=== PATIENT | male | born 1950 ===

== ENCOUNTER 2019-06-09 11:36 | Inpatient (IN) ==
[2019-06-09 12:09] LABS: Basophils # 0.1 K/mcL (0.0-0.2); Basophils % 0.7 %; Eosinophils # 0.6 K/mcL (0.0-0.6); Eosinophils % 5.6 %; Hematocrit 52.7 % (37.5-50.1); Hemoglobin 16.9 g/dL (12.9-16.9); Immature Granulocytes % 0.4 % (0-4); Lymphocytes # 2.1 K/mcL (0.6-4.6); Lymphocytes % 18.8 %; Mean Corpuscular HGB Conc 32.1 g/dL (31.6-35.5); Mean Corpuscular Hemoglobin 30.1 pg (28.0-33.3); Mean Corpuscular Volume 93.8 fL (83.0-100.0); Mean Platelet Volume 10.5 fL (9.4-12.4); Monocytes # 0.8 K/mcL (0.0-1.3); Monocytes % 7.2 %; Neutrophils # 7.5 K/mcL (1.6-8.9); Platelet Count 185 K/mcL (140-400); Red Blood Count 5.62 M/mcL (4.19-5.50); Red Cell Distribution Width 13.9 % (11.5-14.5); Segmented Neutrophils % 67.3 %; White Blood Count 11.2 K/mcL (4.3-11.1)
[2019-06-09 12:17] LABS: INR 1.2; Prothrombin Time 13.2 Seconds (9.4-12.1)
[2019-06-09 12:19] LABS: Activated Partial Thrombo Time 31.8 Seconds (26.0-36.0)
[2019-06-09] MEDS ORDERED: Azithromycin 500 MG in 0.9 % Sodium Chloride 250 ML IVPB ONE (12:26)
[2019-06-09] MEDS ORDERED: cefTRIAXone 1,000 MG in Water for inj. (sterile) 10 ML IVP ONE (12:26)
[2019-06-09 12:28] LABS: VBG HCO3 38 mEq/L (21-27); VBG PCO2 76 mmHg (41-51); VBG PO2 93 mmHg (25-50)
[2019-06-09] MEDS ORDERED: methylPREDNISolone 125 MG/2 ML VIAL IVP ONE (12:32)
[2019-06-09 12:56] LABS: Alanine Aminotransferase 11 Units/L (7-52); Albumin 4.6 g/dL (3.5-5.7); Albumin/Globulin Ratio 1.7 (1.1-2.2); Alkaline Phosphatase 82 Units/L (34-104); Aspartate Amino Transferase 17 Units/L (13-39); Bilirubin,Direct 0.2 mg/dL (0.0-0.2); Bilirubin,Indirect 0.5 mg/dL (0.0-1.0); Bilirubin,Total 0.7 mg/dL (0.3-1.0); Blood Urea Nitrogen 14 mg/dL (8-23); Calcium 10.1 mg/dL (8.6-10.3); Carbon Dioxide 37 mEq/L (23-29); Chloride 94 mEq/L (98-107); Globulin 2.7 g/dL (2.4-3.5); Glucose 91 mg/dL (70-105); Osmolality,Calculated 284 (280-300); Potassium 4.6 mEq/L (3.5-5.1); Sodium 137 mEq/L (136-145); Total Protein 7.3 g/dL (6.4-8.9)
[2019-06-09] MEDS ORDERED: *HR* Heparin 5,000 UNIT/ML VIAL IVP ONE (13:00)
[2019-06-09] MEDS ORDERED: Heparin 25,000 UNIT/250 ML D5W 25,000 UNIT/250 ML IV.SOLN IVC SCH (13:00)
[2019-06-09] MEDS ORDERED: *HR* Heparin 5,000 UNIT/ML VIAL IVP PRN ×2 (13:00)
[2019-06-09 13:01] LABS: Carboxyhemoglobin 7.9 % (0-5)
[2019-06-09 13:30] LABS: BUN/Creatinine Ratio 18 (6-26); eGFR For African Americans > 60 (> 60); eGFR For Non-African Americans > 60 (> 60)
[2019-06-09] MEDS ORDERED: Naloxone 0.4 MG/ML INJ IVP PRN (14:06)
[2019-06-09] MEDS ORDERED: Ondansetron 4 MG/2 ML VIAL IVP PRN (14:06)
[2019-06-09] MEDS ORDERED: Ipratropium/Albuterol Neb 3 ML IH PRN (14:41)
[2019-06-09] MEDS ORDERED: Budesonide/Formoterol 160/4.5 1 PUFF INH IH SCH (15:15)
[2019-06-09] MEDS ORDERED: Aspirin 325 MG TABLET PO ONE (15:51)
[2019-06-09] MEDS ORDERED: Ipratropium/Albuterol Neb 3 ML IH SCH (16:00)
[2019-06-09] MEDS: MethylPREDNISolone 40 MG/ML VIAL IVP SCH (17:51)
[2019-06-10] MEDS: MethylPREDNISolone 40 MG/ML VIAL IVP SCH ×4 (01:04→23:43)
[2019-06-10 05:01] LABS: Basophils % 0.3 %; Hematocrit 53.6 % (37.5-50.1); Hemoglobin 16.5 g/dL (12.9-16.9); Immature Granulocytes % 0.7 % (0-4); Lymphocytes # 1.2 K/mcL (0.6-4.6); Lymphocytes % 13.8 %; Mean Corpuscular HGB Conc 30.8 g/dL (31.6-35.5); Mean Corpuscular Hemoglobin 29.8 pg (28.0-33.3); Mean Corpuscular Volume 96.9 fL (83.0-100.0); Mean Platelet Volume 10.4 fL (9.4-12.4); Monocytes # 0.1 K/mcL (0.0-1.3); Monocytes % 1.1 %; Neutrophils # 7.3 K/mcL (1.6-8.9); Platelet Count 163 K/mcL (140-400); Red Blood Count 5.53 M/mcL (4.19-5.50); Red Cell Distribution Width 13.7 % (11.5-14.5); Segmented Neutrophils % 84.1 %; White Blood Count 8.7 K/mcL (4.3-11.1)
[2019-06-10 05:06] LABS: INR 1.1; Prothrombin Time 12.9 Seconds (9.4-12.1)
[2019-06-10 05:30] LABS: BUN/Creatinine Ratio 25 (6-26); Blood Urea Nitrogen 22 mg/dL (8-23); Calcium 9.8 mg/dL (8.6-10.3); Carbon Dioxide 40 mEq/L (23-29); Chloride 94 mEq/L (98-107); Chol/HDL Ratio 2.3 (0-4.9); Cholesterol 111 mg/dL (< 200); Glucose 153 mg/dL (70-105); HDL Cholesterol 49 mg/dL (40-59); LDL Cholesterol,Calculated 45 mg/dL (0-99); Osmolality,Calculated 296 (280-300); Phosphorous 6.2 mg/dL (2.7-4.5); Potassium 5.7 mEq/L (3.5-5.1); Sodium 140 mEq/L (136-145); Triglycerides 84 mg/dL (< 150); Troponin I 0.16 ng/mL (< 0.04); eGFR For African Americans > 60 (> 60); eGFR For Non-African Americans > 60 (> 60)
[2019-06-10 05:33] LABS: VBG HCO3 42 mEq/L (21-27); VBG PCO2 131 mmHg (41-51); VBG PH 7.11 pH Units (7.32-7.42); VBG PO2 225 mmHg (25-50)
[2019-06-10 06:13] LABS: ABG Base Excess 4 mEq/L (-2 to 3); ABG HCO3 41 mEq/L (21-27); ABG Oxygen Saturation 99 % (95-98); ABG PCO2 136 mmHg (35-45); ABG PH 7.09 pH Units (7.32-7.45); ABG PO2 180 mmHg (85-104); ABG TCO2 46 mEq/L (20-26)
[2019-06-10] MEDS: FentaNYL (PF) 1,000 MCG in 0.9 % Sodium Chloride 80 ML IVC SCH ×2 (07:30→13:16)
[2019-06-10] MEDS: Furosemide 40 MG TABLET PO SCH (08:28)
[2019-06-10] MEDS ORDERED: *HR* Metoprolol 5 MG/5 ML VIAL IVP PRN (08:28)
[2019-06-10] MEDS: Aspirin 81 MG TAB.CHEW PO SCH (08:28)
[2019-06-10] MEDS: Dexmedetomidine HCl 400 MCG/100 ML MLS IVC SCH (08:45)
[2019-06-10 08:51] LABS: ABG Base Excess 5 mEq/L (-2 to 3); ABG HCO3 39 mEq/L (21-27); ABG Oxygen Saturation 100 % (95-98); ABG PCO2 99 mmHg (35-45); ABG PO2 284 mmHg (85-104); ABG TCO2 42 mEq/L (20-26); Blood Gas Modality VC; Blood Gas VT 500 cc
[2019-06-10] MEDS ORDERED: NON-FORMULARY MEDICATION 1 EACH EACH (Ezetimibe [Zetia] 10 MG) PO SCH (09:00)
[2019-06-10] MEDS ORDERED: Metoprolol XL (24 HR) Succ 50 MG TAB.ER.24H PO SCH (09:00)
[2019-06-10] MEDS ORDERED: DilTIAZem CD (24hr) 300 MG CAP.ER.24H PO SCH (09:00)
[2019-06-10] MEDS ORDERED: Tiotropium 18 MCG inhalation IH SCH (10:00)
[2019-06-10] MEDS: Azithromycin 500 MG in 0.9 % Sodium Chloride 250 ML IVPB SCH (11:46)
[2019-06-10] MEDS: Ipratropium 1 PUFF INHALER IH SCH ×4 (11:50→23:28)
[2019-06-10] MEDS ORDERED: Artificial Tears SOLN 15 ML BOTTLE BOTH EYES PRN (13:45)
[2019-06-10] MEDS ORDERED: *HR* Midazolam HCl 2 MG/2 ML VIAL IV ONE (14:57)
[2019-06-10] MEDS ORDERED: *HR* Succinylcholine 200 MG/10 ML VIAL IVP ONE (14:57)
[2019-06-10] MEDS ORDERED: *HR* Propofol 200 MG/20 ML VIAL IVP ONE (14:57)
[2019-06-10] MEDS ORDERED: *HR* Rocuronium Bromide 50 MG/5 ML VIAL IVP ONE (15:21)
[2019-06-10 16:02] LABS: ABG Base Excess 8 mEq/L (-2 to 3); ABG HCO3 42 mEq/L (21-27); ABG Oxygen Saturation 96 % (95-98); ABG PCO2 98 mmHg (35-45); ABG PH 7.24 pH Units (7.32-7.45); ABG PO2 104 mmHg (85-104); ABG TCO2 45 mEq/L (20-26); Blood Gas Modality VC+; Blood Gas VT 450 cc
[2019-06-10 16:13] LABS: BUN/Creatinine Ratio 29 (6-26); Blood Urea Nitrogen 31 mg/dL (8-23); C-Reactive Protein 10 mg/L (Less than 10); Calcium 9.6 mg/dL (8.6-10.3); Carbon Dioxide 38 mEq/L (23-29); Chloride 95 mEq/L (98-107); Glucose 129 mg/dL (70-105); Lactate Dehydrogenase 168 Units/L (140-271); Osmolality,Calculated 294 (280-300); Potassium 5.2 mEq/L (3.5-5.1); Sodium 138 mEq/L (136-145); eGFR For African Americans > 60 (> 60); eGFR For Non-African Americans > 60 (> 60)
[2019-06-10 16:30] LABS: Ferritin 30 ng/mL (20-250)
[2019-06-10] MEDS: Pantoprazole 40 MG VIAL IVP SCH (17:49)
[2019-06-10] MEDS: Artificial Tears SOLN 15 ML BOTTLE BOTH EYES SCH ×3 (17:49→23:44)
[2019-06-10 17:57] LABS: Adenovirus Not Detected (Not Detect); Bordetella Pertussis Not Detected (Not Detect); Chlamydophila pneumoniae Not Detected (Not Detect); Coronavirus 229E Not Detected (Not Detect); Coronavirus HKU1 Not Detected (Not Detect); Coronavirus NL63 Not Detected (Not Detect); Coronavirus OC43 Not Detected (Not Detect); Human Metapneumovirus Not Detected (Not Detect); Human Rhinovirus/Enterovirus Not Detected (Not Detect); Influenza A Subtype 2009 H1 Not Detected (Not Detect); Influenza B Not Detected (Not Detect); Mycoplasma pneumoniae Not Detected (Not Detect); Parainfluenza Virus 1 Not Detected (Not Detect); Parainfluenza Virus 2 Not Detected (Not Detect); Parainfluenza Virus 3 Not Detected (Not Detect); Parainfluenza Virus 4 Not Detected (Not Detect); Respiratory Syncytial Virus Not Detected (Not Detect)
[2019-06-10] MEDS ORDERED: Apixaban 5 MG TABLET PO SCH (21:00)
[2019-06-10] MEDS: *HR* Midazolam HCl 2 MG/2 ML VIAL IVP PRN (21:22)
[2019-06-10] MEDS: Chlorhexidine Rinse 15 ML MOUTHWASH MM SCH (22:00)
[2019-06-10] MEDS: Heparin 25,000 UNIT/250 ML D5W 25,000 UNIT/250 ML IV.SOLN IVC SCH (22:17)
[2019-06-11] MEDS: FentaNYL (PF) 1,000 MCG in 0.9 % Sodium Chloride 80 ML IVC SCH ×3 (02:38→16:55)
[2019-06-11] MEDS: Ipratropium 1 PUFF INHALER IH SCH ×9 (03:57→23:58)
[2019-06-11] MEDS: Dexmedetomidine HCl 400 MCG/100 ML MLS IVC SCH (04:29)
[2019-06-11] MEDS: Artificial Tears SOLN 15 ML BOTTLE BOTH EYES SCH ×6 (04:40→23:20)
[2019-06-11 04:43] LABS: Basophils % 0.1 %; Hematocrit 51.4 % (37.5-50.1); Hemoglobin 15.6 g/dL (12.9-16.9); Immature Granulocytes % 0.3 % (0-4); Lymphocytes # 0.6 K/mcL (0.6-4.6); Lymphocytes % 3.9 %; Mean Corpuscular HGB Conc 30.4 g/dL (31.6-35.5); Mean Corpuscular Hemoglobin 29.9 pg (28.0-33.3); Mean Corpuscular Volume 98.5 fL (83.0-100.0); Mean Platelet Volume 10.8 fL (9.4-12.4); Monocytes # 0.8 K/mcL (0.0-1.3); Monocytes % 5.2 %; Neutrophils # 14.2 K/mcL (1.6-8.9); Platelet Count 170 K/mcL (140-400); Red Blood Count 5.22 M/mcL (4.19-5.50); Red Cell Distribution Width 13.7 % (11.5-14.5); Segmented Neutrophils % 90.5 %; White Blood Count 15.7 K/mcL (4.3-11.1)
[2019-06-11 04:50] LABS: Heparin anti-factor XA UFH 0.37 IU/mL (0.30-0.70); Prothrombin Time 11.4 Seconds (9.4-12.1)
[2019-06-11 04:53] LABS: Activated Partial Thrombo Time 43.9 Seconds (26.0-36.0)
[2019-06-11 05:00] LABS: Albumin/Globulin Ratio 1.6 (1.1-2.2); Bilirubin,Total 0.4 mg/dL (0.3-1.0); Calcium 9.4 mg/dL (8.6-10.3); Globulin 2.5 g/dL (2.4-3.5); Magnesium 2.3 mg/dL (1.6-2.6); Potassium 6.1 mEq/L (3.5-5.1); Total Protein 6.5 g/dL (6.4-8.9)
[2019-06-11 06:04] LABS: ABG Base Excess 4 mEq/L (-2 to 3); ABG HCO3 41 mEq/L (21-27); ABG Oxygen Saturation 89 % (95-98); ABG PCO2 139 mmHg (35-45); ABG PH 7.08 pH Units (7.32-7.45); ABG PO2 85 mmHg (85-104); ABG TCO2 45 mEq/L (20-26); Blood Gas Modality ASSIST CONTROL; Blood Gas VT 450 cc
[2019-06-11 07:33] LABS: ABG Base Excess 6 mEq/L (-2 to 3); ABG HCO3 41 mEq/L (21-27); ABG Oxygen Saturation 56 % (95-98); ABG PCO2 109 mmHg (35-45); ABG PH 7.18 pH Units (7.32-7.45); ABG PO2 39 mmHg (85-104); ABG TCO2 44 mEq/L (20-26); Blood Gas Modality ASSIST CONTROL; Blood Gas VT 480 cc
[2019-06-11] MEDS: MethylPREDNISolone 40 MG/ML VIAL IVP SCH ×3 (09:30→23:20)
[2019-06-11] MEDS: Aspirin 81 MG TAB.CHEW PO SCH (09:30)
[2019-06-11] MEDS: Furosemide 40 MG TABLET PO SCH (09:30)
[2019-06-11] MEDS: Pantoprazole 40 MG VIAL IVP SCH (09:30)
[2019-06-11] MEDS: Chlorhexidine Rinse 15 ML MOUTHWASH MM SCH ×2 (09:30→19:47)
[2019-06-11 09:50] LABS: ABG Base Excess 6 mEq/L (-2 to 3); ABG HCO3 39 mEq/L (21-27); ABG Oxygen Saturation 98 % (95-98); ABG PCO2 99 mmHg (35-45); ABG PH 7.21 pH Units (7.32-7.45); ABG PO2 126 mmHg (85-104); ABG TCO2 42 mEq/L (20-26); Blood Gas VT 500 cc
[2019-06-11] MEDS: Azithromycin 500 MG in 0.9 % Sodium Chloride 250 ML IVPB SCH (12:39)
[2019-06-11] MEDS: 0.9 % Sodium Chloride 500 ML IVC SCH ×3 (12:39→15:23)
[2019-06-11 16:00] LABS: ABG Base Excess 5 mEq/L (-2 to 3); ABG HCO3 38 mEq/L (21-27); ABG Oxygen Saturation 93 % (95-98); ABG PCO2 101 mmHg (35-45); ABG PH 7.18 pH Units (7.32-7.45); ABG PO2 88 mmHg (85-104); ABG TCO2 41 mEq/L (20-26); Blood Gas Modality ASSIST CONTROL; Blood Gas VT 480 cc
[2019-06-11] MEDS: SODIUM ZIRCONIUM CYCLOSILICATE 5 GM POWD.PACK PO SCH (16:09)
[2019-06-11 17:06] LABS: Protein/Creatinine Ratio,Urine 0.2 mg/mg (0.00-0.20)
[2019-06-11 17:10] LABS: Bilirubin,Urine Negative (Negative); Blood,Urine Negative (Negative); Clarity,Urine Cloudy (Clear); Color,Urine Dark Yellow (Yellow); Glucose,Urine (UA) Normal (Normal); Ketones,Urine Negative (Negative); Leukocyte Esterase,Urine Negative (Negative); Nitrite,Urine Negative (Negative); Protein,Urine 30 mg/dL (Neg-Trace); Specific Gravity,Urine 1.019 (1.010-1.025); Urobilinogen,Urine Normal (Normal)
[2019-06-11 17:13] LABS: Bacteria,Urine None Seen per hpf (None-Few); Squamous Epithelial Cell,Urine Many per lpf (None-Few)
[2019-06-11 17:16] LABS: Calcium 8.8 mg/dL (8.6-10.3); Magnesium 2.5 mg/dL (1.6-2.6); Phosphorous 8.2 mg/dL (2.7-4.5); Potassium 5.6 mEq/L (3.5-5.1); Uric Acid 10.7 mg/dL (2.3-7.6)
[2019-06-11 17:24] LABS: Hyaline Casts,Urine Moderate per lpf (None-Few); Mucus,Urine Few per lpf (Few)
[2019-06-11] MEDS ORDERED: 0.9 % Sodium Chloride 500 ML IVC ONE (17:39)
[2019-06-11] MEDS: Heparin 25,000 UNIT/250 ML D5W 25,000 UNIT/250 ML IV.SOLN IVC SCH (18:38)
[2019-06-12 01:27] LABS: Calcium 8.7 mg/dL (8.6-10.3); Potassium 6.1 mEq/L (3.5-5.1)
[2019-06-12] MEDS: Ipratropium 1 PUFF INHALER IH SCH ×12 (02:08→23:28)
[2019-06-12] MEDS ORDERED: Insulin Human Regular 10 UNIT in 0.9 % Sodium Chloride 10 ML IV ONE (02:55)
[2019-06-12] MEDS ORDERED: Ringers Solution, Lactated 500 ML IVC ONE (02:55)
[2019-06-12] MEDS ORDERED: *HR* Dextrose 50 % in Water (Syg) 50 ML SYRINGE IVP ONE (02:56)
[2019-06-12] MEDS: Artificial Tears SOLN 15 ML BOTTLE BOTH EYES SCH ×5 (04:00→20:00)
[2019-06-12 04:51] LABS: Basophils % 0.1 %; Hematocrit 46.1 % (37.5-50.1); Immature Granulocytes % 0.4 % (0-4); Lymphocytes # 0.4 K/mcL (0.6-4.6); Lymphocytes % 3.3 %; Mean Corpuscular HGB Conc 30.4 g/dL (31.6-35.5); Mean Corpuscular Hemoglobin 30.3 pg (28.0-33.3); Mean Corpuscular Volume 99.8 fL (83.0-100.0); Mean Platelet Volume 11.1 fL (9.4-12.4); Monocytes # 0.1 K/mcL (0.0-1.3); Monocytes % 0.5 %; Neutrophils # 10.6 K/mcL (1.6-8.9); Platelet Count 141 K/mcL (140-400); Red Blood Count 4.62 M/mcL (4.19-5.50); Red Cell Distribution Width 14.1 % (11.5-14.5); Segmented Neutrophils % 95.7 %
[2019-06-12 04:59] LABS: Albumin 3.6 g/dL (3.5-5.7); Albumin/Globulin Ratio 1.6 (1.1-2.2); Bilirubin,Total 0.3 mg/dL (0.3-1.0); Calcium 8.6 mg/dL (8.6-10.3); Globulin 2.3 g/dL (2.4-3.5); Magnesium 2.4 mg/dL (1.6-2.6); Phosphorous 7.7 mg/dL (2.7-4.5); Potassium 5.4 mEq/L (3.5-5.1); Total Protein 5.9 g/dL (6.4-8.9)
[2019-06-12 06:14] LABS: ABG Base Excess 5 mEq/L (-2 to 3); ABG HCO3 36 mEq/L (21-27); ABG Oxygen Saturation 94 % (95-98); ABG PCO2 89 mmHg (35-45); ABG PH 7.22 pH Units (7.32-7.45); ABG PO2 89 mmHg (85-104); ABG TCO2 39 mEq/L (20-26); Blood Gas VT 520 cc
[2019-06-12] MEDS: MethylPREDNISolone 40 MG/ML VIAL IVP SCH ×2 (09:43→16:02)
[2019-06-12] MEDS: Pantoprazole 40 MG VIAL IVP SCH (09:43)
[2019-06-12] MEDS: Chlorhexidine Rinse 15 ML MOUTHWASH MM SCH ×2 (09:43→20:00)
[2019-06-12] MEDS: Aspirin 81 MG TAB.CHEW PO SCH (09:44)
[2019-06-12] MEDS: PrismaSATE BGK 4/2.5 5,000 ML CRRT SCH ×6 (12:45→21:09)
[2019-06-12] MEDS: Azithromycin 500 MG in 0.9 % Sodium Chloride 250 ML IVPB SCH (13:27)
[2019-06-12] MEDS: SODIUM ZIRCONIUM CYCLOSILICATE 5 GM POWD.PACK PO SCH (13:29)
[2019-06-12] MEDS: FentaNYL (PF) 1,000 MCG in 0.9 % Sodium Chloride 80 ML IVC SCH ×2 (13:31→21:13)
[2019-06-12] MEDS: Dexmedetomidine HCl 400 MCG/100 ML MLS IVC SCH ×2 (13:34→19:52)
[2019-06-12] MEDS: DilTIAZem 50 MG in 0.9 % Sodium Chloride 40 ML IVC SCH (19:52)
[2019-06-12] MEDS: Heparin 25,000 UNIT/250 ML D5W 25,000 UNIT/250 ML IV.SOLN IVC SCH (21:12)
[2019-06-13] MEDS: MethylPREDNISolone 40 MG/ML VIAL IVP SCH ×4 (00:13→23:32)
[2019-06-13] MEDS: Artificial Tears SOLN 15 ML BOTTLE BOTH EYES SCH ×7 (00:13→23:32)
[2019-06-13] MEDS: PrismaSATE BGK 4/2.5 5,000 ML CRRT SCH ×12 (01:09→20:01)
[2019-06-13] MEDS: Ipratropium 1 PUFF INHALER IH SCH ×12 (02:01→23:54)
[2019-06-13] MEDS ORDERED: 0.9 % Sodium Chloride 500 ML ONE ×2 (03:11→21:28)
[2019-06-13] MEDS: *HR* Heparin 5,000 UNIT/ML VIAL CRRT PRN ×2 (03:17→21:25)
[2019-06-13] MEDS: 0.9 % Sodium Chloride 1,000 ML PRIME SCH ×4 (03:17→22:21)
[2019-06-13] MEDS: DilTIAZem 50 MG in 0.9 % Sodium Chloride 40 ML IVC SCH ×3 (03:19→20:25)
[2019-06-13 04:29] LABS: Immature Granulocytes % 0.4 % (0-4); Platelet Count 131 K/mcL (140-400)
[2019-06-13 04:31] LABS: Basophils % 0.1 %; Hematocrit 49.1 % (37.5-50.1); Hemoglobin 14.5 g/dL (12.9-16.9); Immature Platelets 9.7 % (1.1-6.1); Lymphocytes # 0.2 K/mcL (0.6-4.6); Lymphocytes % 1.9 %; Mean Corpuscular HGB Conc 29.5 g/dL (31.6-35.5); Mean Corpuscular Hemoglobin 29.7 pg (28.0-33.3); Mean Corpuscular Volume 100.6 fL (83.0-100.0); Mean Platelet Volume 11.5 fL (9.4-12.4); Monocytes # 0.6 K/mcL (0.0-1.3); Monocytes % 4.5 %; Red Blood Count 4.88 M/mcL (4.19-5.50); Red Cell Distribution Width 14.2 % (11.5-14.5); Segmented Neutrophils % 93.1 %; White Blood Count 12.7 K/mcL (4.3-11.1)
[2019-06-13] MEDS: FentaNYL (PF) 1,000 MCG in 0.9 % Sodium Chloride 80 ML IVC SCH ×4 (04:32→22:00)
[2019-06-13 04:34] LABS: Neutrophils # 11.8 K/mcL (1.6-8.9)
[2019-06-13 04:49] LABS: Albumin 3.9 g/dL (3.5-5.7); Bilirubin,Total 0.4 mg/dL (0.3-1.0); Calcium 8.4 mg/dL (8.6-10.3); Magnesium 2.5 mg/dL (1.6-2.6); Phosphorous 5.2 mg/dL (2.7-4.5); Potassium 5.7 mEq/L (3.5-5.1); Total Protein 5.9 g/dL (6.4-8.9)
[2019-06-13 05:30] LABS: ABG Base Excess -1 mEq/L (-2 to 3); ABG HCO3 31 mEq/L (21-27); ABG Oxygen Saturation 97 % (95-98); ABG PCO2 85 mmHg (35-45); ABG PH 7.16 pH Units (7.32-7.45); ABG PO2 121 mmHg (85-104); ABG TCO2 33 mEq/L (20-26); Blood Gas Modality ASSIST CONTROL; Blood Gas VT 520 cc
[2019-06-13] MEDS: Aspirin 81 MG TAB.CHEW PO SCH (07:22)
[2019-06-13] MEDS: SODIUM ZIRCONIUM CYCLOSILICATE 5 GM POWD.PACK PO SCH (07:22)
[2019-06-13] MEDS: Pantoprazole 40 MG VIAL IVP SCH (07:22)
[2019-06-13] MEDS: Chlorhexidine Rinse 15 ML MOUTHWASH MM SCH ×2 (07:22→20:24)
[2019-06-13 11:10] LABS: ABG Base Excess -4 mEq/L (-2 to 3); ABG HCO3 30 mEq/L (21-27); ABG Oxygen Saturation 91 % (95-98); ABG PCO2 93 mmHg (35-45); ABG PH 7.11 pH Units (7.32-7.45); ABG PO2 85 mmHg (85-104); ABG TCO2 33 mEq/L (20-26); Blood Gas Modality CPAP/PS; Blood Gas Pressure Support 16 cm H2O
[2019-06-13] MEDS: Azithromycin 500 MG in 0.9 % Sodium Chloride 250 ML IVPB SCH (11:37)
[2019-06-13] MEDS: Dexmedetomidine HCl 400 MCG/100 ML MLS IVC SCH ×2 (13:16→16:59)
[2019-06-13 16:52] LABS: ABG Base Excess -4 mEq/L (-2 to 3); ABG HCO3 29 mEq/L (21-27); ABG Oxygen Saturation 93 % (95-98); ABG PCO2 88 mmHg (35-45); ABG PH 7.13 pH Units (7.32-7.45); ABG PO2 89 mmHg (85-104); ABG TCO2 32 mEq/L (20-26); Blood Gas Modality PC
[2019-06-13] MEDS: Sennosides/Docusate Sodium TABLET PO SCH (20:24)
[2019-06-13] MEDS: Heparin 25,000 UNIT/250 ML D5W 25,000 UNIT/250 ML IV.SOLN IVC SCH (20:24)
[2019-06-13] MEDS ORDERED: *HR* Heparin 5,000 UNIT/ML VIAL ONE (20:41)
[2019-06-13] MEDS ORDERED: 0.9 % Sodium Chloride 250 ML ONE (21:17)
[2019-06-13] MEDS: *HR* Midazolam HCl 2 MG/2 ML VIAL IVP PRN (22:28)
[2019-06-13 22:51] LABS: VBG Ionized Calcium 1.12 mmol/L (1.15-1.35)
[2019-06-13 23:07] LABS: Calcium 8.2 mg/dL (8.6-10.3); Magnesium 2.6 mg/dL (1.6-2.6); Phosphorous 4.1 mg/dL (2.7-4.5); Potassium 5.3 mEq/L (3.5-5.1)
[2019-06-14] MEDS ORDERED: *HR* Heparin 5,000 UNIT/ML VIAL ONE ×2 (00:41→11:12)
[2019-06-14 00:58] LABS: INR 1.1; Prothrombin Time 12.4 Seconds (9.4-12.1)
[2019-06-14 01:09] LABS: Basophils % 0.1 %; Eosinophils % 0.1 %; Hematocrit 49.6 % (37.5-50.1); Immature Granulocytes % 0.3 % (0-4); Immature Platelets 11.4 % (1.1-6.1); Lymphocytes # 0.2 K/mcL (0.6-4.6); Lymphocytes % 2.1 %; Mean Corpuscular HGB Conc 30.2 g/dL (31.6-35.5); Mean Corpuscular Hemoglobin 30.1 pg (28.0-33.3); Mean Corpuscular Volume 99.6 fL (83.0-100.0); Mean Platelet Volume 11.4 fL (9.4-12.4); Monocytes # 0.6 K/mcL (0.0-1.3); Monocytes % 5.1 %; Neutrophils # 10.8 K/mcL (1.6-8.9); Platelet Count 133 K/mcL (140-400); Red Blood Count 4.98 M/mcL (4.19-5.50); Red Cell Distribution Width 14.3 % (11.5-14.5); Segmented Neutrophils % 92.3 %; White Blood Count 11.7 K/mcL (4.3-11.1)
[2019-06-14 01:16] LABS: Activated Partial Thrombo Time 159.5 Seconds (26.0-36.0)
[2019-06-14] MEDS: *HR* Heparin 5,000 UNIT/ML VIAL CRRT PRN ×2 (01:39→11:15)
[2019-06-14] MEDS: *HR* Midazolam HCl 2 MG/2 ML VIAL IVP PRN (01:40)
[2019-06-14] MEDS: PrismaSATE BGK 4/2.5 5,000 ML CRRT SCH ×6 (02:07→10:32)
[2019-06-14] MEDS: Ipratropium 1 PUFF INHALER IH SCH ×6 (02:48→15:52)
[2019-06-14] MEDS: Artificial Tears SOLN 15 ML BOTTLE BOTH EYES SCH ×5 (03:14→20:29)
[2019-06-14 04:04] LABS: VBG Ionized Calcium 1.08 mmol/L (1.15-1.35)
[2019-06-14 04:08] LABS: INR 1.1; Prothrombin Time 12.6 Seconds (9.4-12.1)
[2019-06-14 04:11] LABS: Basophils % 0.1 %; Hematocrit 48.3 % (37.5-50.1); Hemoglobin 14.7 g/dL (12.9-16.9); Immature Granulocytes % 0.4 % (0-4); Immature Platelets 10.9 % (1.1-6.1); Lymphocytes # 0.2 K/mcL (0.6-4.6); Lymphocytes % 1.7 %; Mean Corpuscular HGB Conc 30.4 g/dL (31.6-35.5); Mean Corpuscular Hemoglobin 30.5 pg (28.0-33.3); Mean Corpuscular Volume 100.2 fL (83.0-100.0); Mean Platelet Volume 10.9 fL (9.4-12.4); Monocytes # 0.4 K/mcL (0.0-1.3); Monocytes % 3.1 %; Neutrophils # 11.3 K/mcL (1.6-8.9); Platelet Count 127 K/mcL (140-400); Red Blood Count 4.82 M/mcL (4.19-5.50); Red Cell Distribution Width 14.2 % (11.5-14.5); Segmented Neutrophils % 94.7 %
[2019-06-14 04:21] LABS: Albumin 4.1 g/dL (3.5-5.7); Albumin/Globulin Ratio 1.6 (1.1-2.2); Bilirubin,Direct 0.2 mg/dL (0.0-0.2); Bilirubin,Indirect 0.3 mg/dL (0.0-1.0); Bilirubin,Total 0.5 mg/dL (0.3-1.0); Calcium 8.4 mg/dL (8.6-10.3); Globulin 2.5 g/dL (2.4-3.5); Potassium 5.2 mEq/L (3.5-5.1); Total Protein 6.6 g/dL (6.4-8.9)
[2019-06-14 04:39] LABS: ABG Base Excess -3 mEq/L (-2 to 3); ABG HCO3 26 mEq/L (21-27); ABG Oxygen Saturation 98 % (95-98); ABG PCO2 61 mmHg (35-45); ABG PH 7.24 pH Units (7.32-7.45); ABG PO2 117 mmHg (85-104); ABG TCO2 28 mEq/L (20-26); Blood Gas Modality ASSIST CONTROL; Blood Gas VT 550 cc
[2019-06-14] MEDS: DilTIAZem 50 MG in 0.9 % Sodium Chloride 40 ML IVC SCH ×2 (05:43→20:28)
[2019-06-14] MEDS: Dexmedetomidine HCl 400 MCG/100 ML MLS IVC SCH (06:35)
[2019-06-14] MEDS: Pantoprazole 40 MG VIAL IVP SCH (07:40)
[2019-06-14] MEDS: Aspirin 81 MG TAB.CHEW PO SCH (07:40)
[2019-06-14] MEDS: MethylPREDNISolone 40 MG/ML VIAL IVP SCH ×2 (07:40→16:09)
[2019-06-14] MEDS: Sennosides/Docusate Sodium TABLET PO SCH ×2 (07:40→20:30)
[2019-06-14] MEDS: Chlorhexidine Rinse 15 ML MOUTHWASH MM SCH ×2 (07:40→20:28)
[2019-06-14] MEDS: Azithromycin 500 MG in 0.9 % Sodium Chloride 250 ML IVPB SCH (11:43)
[2019-06-14] MEDS ORDERED: Norepinephrine 4 MG in 0.9 % Sodium Chloride 250 ML IVC SCH (12:15)
[2019-06-14] MEDS: Calcium Gluconate 1gm/50mL 1 GM/50 ML BAG IVPB SCH ×2 (14:44→16:09)
[2019-06-14 14:56] LABS: Albumin 3.8 g/dL (3.5-5.7); Albumin/Globulin Ratio 1.5 (1.1-2.2); Bilirubin,Total 0.6 mg/dL (0.3-1.0); Calcium 8.6 mg/dL (8.6-10.3); Globulin 2.5 g/dL (2.4-3.5); Potassium 5.6 mEq/L (3.5-5.1); Total Protein 6.3 g/dL (6.4-8.9)
[2019-06-14] MEDS ORDERED: Atropine Sulfate 1% 40 DROP/2 ML BOTTLE SL PRN ×2 (16:25→23:12)
[2019-06-14] MEDS ORDERED: Scopolamine Patch 1.5 MG PATCH.TD72 TD SCH (16:30)
[2019-06-14] MEDS: *HR* LORazepam 2 MG/ML VIAL IVP PRN ×2 (16:39→22:10)
[2019-06-14] MEDS: FentaNYL (PF) 1,000 MCG in 0.9 % Sodium Chloride 80 ML IVC SCH (16:50)
[2019-06-14] MEDS: Heparin 25,000 UNIT/250 ML D5W 25,000 UNIT/250 ML IV.SOLN IVC SCH (20:29)
[2019-06-14] MEDS ORDERED: Ondansetron 4 MG/2 ML VIAL IVP PRN (23:12)
[2019-06-14] MEDS ORDERED: *HR* LORazepam 2 MG/ML VIAL IVP PRN (23:12)
[2019-06-15] MEDS: Ipratropium 1 PUFF INHALER IH SCH ×2 (00:01→00:02)
[2019-06-15] MEDS: FentaNYL (PF) 1,000 MCG in 0.9 % Sodium Chloride 80 ML IVC SCH ×2 (01:00→12:45)
[2019-06-15] MEDS: Artificial Tears SOLN 15 ML BOTTLE BOTH EYES SCH ×5 (01:19→16:43)
[2019-06-15] MEDS ORDERED: *HR* LORazepam 2 MG/ML VIAL IVP PRN (09:36)
[2019-06-15] MEDS ORDERED: Haloperidol Lactate 5 MG/ML VIAL IVP PRN (09:36)
[2019-06-15] MEDS ORDERED: *HR* FentaNYL (PF) 100 MCG/2 ML VIAL IVP PRN (09:37)
[2019-06-15] MEDS ORDERED: Acetaminophen 650 MG RECTAL SUPP RC PRN (09:37)
[2019-06-15] MEDS: *HR* LORazepam Oral Conc 2 MG/ML SL SCH ×3 (10:18→16:42)
[2019-06-15 16:25] VITALS: BP 84/47
[2019-06-17] MEDS ORDERED: Scopolamine Patch 1.5 MG PATCH.TD72 TD SCH (16:30)
== END 2019-06-15 17:00 | disposition hospice, home (50) | DRG 140 ==
LOC: 2NNU 11:36 → EMEROOARM 11:36 → 2NNU 14:35 → ICNU 06-14 12:26 → 2ANU 06-15 00:32
PROVIDERS: ADMIT Student in an Organized Health Care Education/Training Program; ATTEND Student in an Organized Health Care Education/Training Program